=== PATIENT | female | born 1955 | race Caucasian/White ===

== ENCOUNTER 2018-07-23 09:38 | Day surgery (SDC) | payer OTHER ==
[2018-07-23] MEDS ORDERED: FENTAnyl 50 MCG/ML VIAL (12:19)
[2018-07-23] MEDS ORDERED: MIDAZOLAM 1 MG/ML 2 ML INJ ×2 (12:20)
== END 2018-07-23 12:53 | disposition home or self-care (01) ==
LOC: GIL 09:38
DX: Z12.11 Encounter for screening for malignant neoplasm of colon (principal); K64.8 Other hemorrhoids
CPT/HCPCS: 45378